=== PATIENT | female | born 2000 | race Caucasian/White ===

== ENCOUNTER 2021-09-13 08:19 | Emergency (ER) | payer OTHER ==
[~2021-09-13] VITALS: Ht 167 cm; Wt 97.5 kg
--- NOTE | 2021-09-13 08:40 | ED Lower Extremity ---
General Chief Complaint: Lower Extremity Stated Complaint: LEFT ANKLE INJURY Source: patient Exam Limitations: no limitations History of Present Illness Date Seen by Provider: Sep 13, 2021 Time Seen by Provider: 08:30 Initial Comments Patient is a 21-year-old female who presents to the emergency department today with a chief complaint of left lateral ankle pain. She states she stepped off a curb last night and heard a loud "pop". She was able to stand and hobble into her home. She took some Tylenol and iced it since last night. She continues to complain of left lateral ankle pain. Did not hit her head or have loss of consciousness. No other complaints of injury. Onset: other (last night) Pain/Injury Location: left ankle Method of Injury: twisted Modifying Factors: Improves With Immobilization; Worse With Movement Allergies and Home Medications Allergies Coded Allergies: No Known Drug Allergies (Unverified , 09/13/21) Patient Home Medication List Home Medication List Reviewed: Yes Review of Systems Constitutional: see HPI Respiratory: no symptoms reported Cardiovascular: no symptoms reported Gastrointestinal: no symptoms reported Musculoskeletal: joint pain (left ankle) All Other Systems Reviewed Negative Unless Noted: Yes Physical Exam Vital Signs Vital Signs - First Documented 09/13/21 08:30 Temp 36.2 Pulse 101 Resp 15 B/P (MAP) 134/88 (103) Pulse Ox 98 O2 Delivery Room Air Capillary Refill : Height, Weight, BMI Height: '" Weight: lbs. oz. kg; BMI Method: General Appearance: WD/WN, no apparent distress Cardiovascular: regular rate, rhythm Respiratory: lungs clear, normal breath sounds, no respiratory distress, no accessory muscle use Hips: bilateral hip non-tender, bilateral hip normal inspection, bilateral hip normal range of motion, bilateral hip no evidence of injury Legs: bilateral leg non-tender, bilateral leg normal inspection, bilateral leg normal range of motion, bilateral leg no evidence of injury Knees: bilateral knee non-tender, bilateral knee normal inspection, bilateral knee normal range of motion, bilateral knee no evidence of injury Ankles: right ankle non-tender, right ankle normal inspection, right ankle normal range of motion, right ankle no evidence of injury; left ankle bone tenderness (lat malleolus), left ankle soft tissue tenderness, left ankle swelling Feet: bilateral foot non-tender, bilateral foot normal inspection, bilateral foot normal range of motion, bilateral foot no evidence of injury Neurologic/Tendon: normal sensation, normal motor functions Neurologic/Psychiatric: alert, normal mood/affect, oriented x 3 Skin: normal color, warm/dry Progress/Results/Core Measures Results/Orders My Orders Orders - SOPHIA DAMON MD Ankle, Left, 3 Views (09/13/21 08:37) Vital Signs/I&O 09/13/21 08:30 Temp 36.2 Pulse 101 Resp 15 B/P (MAP) 134/88 (103) Pulse Ox 98 O2 Delivery Room Air Departure Impression Primary Impression: Sprain and strain of ankle Disposition: 01 HOME, SELF-CARE Condition: Stable Departure-Patient Inst. Decision time for Depature: 09:02 [address]errals: [facility] – [place] Patient Instructions: Ankle Sprain (DC) Add. Discharge Instructions: Keep the [place] on for comfort and stability for the next 2-3 days. You will need to walk on the ankle - this can actually speed healing. Over the counter Ibuprofen (advil or motrin) 3 pills every 6 hours with food as needed for pain. Keep it elevated to lessen swelling over the next 24 hours. Jessa packs the next 24 hours as well to help with swelling. Return to the Emergency Department for any new, concerning or emergent complaints. SOPHIA DAMON MD Sep 13, 2021 08:40
--- NOTE | 2021-09-13 09:06 | Diagnostic Imaging Report ---
INDICATION: Pain, twisted ankle. COMPARISON: None available. TECHNIQUE: 3 radiographs of the left ankle dated 09/13/2021. FINDINGS: No acute fracture or dislocation. No destructive osseous process. The talar dome is unremarkable. Ankle mortise is symmetric. No suspicious radiopaque foreign body. No evidence of tarsal coalition. IMPRESSION: No acute osseous abnormality. Dictated by: Dictated on workstation # [id number]
[2021-09-13 09:08] VITALS: BP 134/88
== END 2021-09-13 09:08 | disposition home or self-care (01) ==
LOC: ER 08:22
DX: S93.402A Sprain of unspecified ligament of left ankle, initial encounter (principal); S96.912A Strain of unspecified muscle and tendon at ankle and foot level, left foot, initial encounter; X50.1XXA Overexertion from prolonged static or awkward postures, initial encounter
CPT/HCPCS: 73610